=== PATIENT | male | born 1990 | race American Indian/Alaskan Native ===

== ENCOUNTER 2020-01-14 11:01 | Emergency (ER) | payer SELFPAY ==
[2020-01-14 11:18] VITALS: BP 138/83
--- NOTE | 2020-01-14 12:31 | Emergency Department Report ---
Chief Complaint: Upper Respiratory Infection Stated Complaint: COLD FOR 2 WEEKS Time Seen by Provider: 01/14/20 12:27 - HPI History of Present Illness: 29-year-old -[place] male with a past medical history of sickle cell disease presents to the emergency room for 2 weeks of cough and sweats. Patient reports that he has been taking Mucinex Advil Cold and Sinus DayQuil and NyQuil. Patient states he was taking Claritin for his nasal congestion which she report s did help and it has improved. Patient denies any fever denies any recent travels denies any close contact to any infected coated patients. Patient reports he takes folate acid has no known drug allergies. Patient denies any wheezing. - Exam Vital Signs: Vital Signs 01/14/20 11:15 Temperature 97.9 F Pulse Rate 105 H Respiratory 22 Rate Blood Pressure 138/83 O2 Sat by Pulse 97 Oximetry Physical Exam: Gen: alert oriented NAD Cardic: regular rate and rhythm no murmurs appreciated Resp: Clear to auscultation bilateral no wheezing no rales or rhonchi. Abdomen: Soft nontender nondistended normal bowel sounds. MSE screening note: Focused history and physical exam performed. Due to findings the following was ordered: 29-year-old -[place] male with a past medical history of sickle cell disease presents to the emergency room for 2 weeks of cough and sweats. Patient reports that he has been taking Mucinex Advil Cold and Sinus DayQuil and NyQuil. Patient states he was taking Claritin for his nasal congestion which she reports did help and it has improved. Patient denies any fever denies any recent travels denies any close contact to any infected coated patients. Patient reports he takes folate acid has no known drug allergies. Patient denies any wheezing. Discussed with patient Claritin or Zyrtec for postnasal drip with cough. Also recommend patient to follow-up with his primary care provider. Patient is given information of Covid- 19. ED Disposition for MSE Clinical Impression: Cough, Post-nasal drip Disposition: - TO HOME OR SELFCARE Is pt being admited?: No Does the pt Need Aspirin: No Condition: Stable Additional Instructions: Recommend taking Claritin-D or Zyrtec's for nasal congestion and cough. Follow- up with your primary care provider. Continue with chronic medications. Referrals: your, primary care provider [Other] - 3-5 Days Forms: Work/School Release Form(ED)
== END 2020-01-14 12:52 | disposition home or self-care (01) ==
LOC: ED 11:01
DX: R05 Cough (principal); R09.82 Postnasal drip
CPT/HCPCS: 99282